=== PATIENT | male | born 1955 | race Caucasian/White ===

== ENCOUNTER → 2024-03-15 09:08 | Outpatient (REF) | payer MEDICARE, OTHER, SELFPAY ==
[2024-03-15 11:55] LABS: HDL Cholesterol 45 mg/dl; LDL Cholesterol, Calculated 118 mg/dl; Total Cholesterol 182 mg/dl (50-199); Triglyceride 99 mg/dl (10-149); Very Low Density Lipoprotein 19 mg/dl (0-30)
[2024-03-15 13:14] LABS: Glycohemoglobin (HgbA1c) 7.5 % (4.0-5.6)
== END ==
LOC: REG 09:08
PROVIDERS: ATTENDING PHYSICIAN Internal Medicine Cardiovascular Disease; FAMILY PHYSICIAN Internal Medicine
DX: I25.10 Atherosclerotic heart disease of native coronary artery without angina pectoris (principal); Z78.9 Other specified health status; R73.09 Other abnormal glucose
CPT/HCPCS: 36415; 80061; 83036

== ENCOUNTER → 2024-09-24 10:44 | Outpatient (REF) | payer MEDICARE, OTHER, SELFPAY ==
[2024-09-24 20:05] LABS: HDL Cholesterol 50 mg/dl; LDL Cholesterol, Calculated 105 mg/dl; Total Cholesterol 166 mg/dl (50-199); Triglyceride 58 mg/dl (10-149); Very Low Density Lipoprotein 11 mg/dl (0-30)
[2024-09-25 08:39] LABS: Glycohemoglobin (HgbA1c) 7.4 % (4.0-5.6)
== END ==
LOC: HWLAB 10:44
PROVIDERS: ATTENDING PHYSICIAN Internal Medicine Cardiovascular Disease; FAMILY PHYSICIAN Internal Medicine
DX: I25.10 Atherosclerotic heart disease of native coronary artery without angina pectoris (principal); R73.01 Impaired fasting glucose
CPT/HCPCS: 36415; 80061; 83036

== ENCOUNTER → 2025-01-25 08:26 | Outpatient (REF) | payer MEDICARE, OTHER, SELFPAY ==
[2025-01-25 10:33] LABS: Glycohemoglobin (HgbA1c) 7.2 % (4.0-5.6)
[2025-01-25 12:27] LABS: HDL Cholesterol 48 mg/dl; LDL Cholesterol, Calculated 105 mg/dl; Total Cholesterol 167 mg/dl (50-199); Triglyceride 70 mg/dl (10-149); Very Low Density Lipoprotein 14 mg/dl (0-30)
== END ==
LOC: HWLAB 08:26
PROVIDERS: ATTENDING PHYSICIAN Internal Medicine Cardiovascular Disease; FAMILY PHYSICIAN Internal Medicine
DX: R73.09 Other abnormal glucose (principal); Z79.899 Other long term (current) drug therapy; I25.10 Atherosclerotic heart disease of native coronary artery without angina pectoris
CPT/HCPCS: 36415; 80061; 83036

== ENCOUNTER → 2025-03-01 07:44 | Outpatient (REF) | payer MEDICARE, OTHER, SELFPAY ==
[2025-03-01 10:04] LABS: % Basophils 1.2 % (0-2); % Eosinophils 4.5 % (0-6); % Immature Granulocytes 0.5 % (0-0.5); % Lymphocytes 23.2 % (20.5-51.1); % Monocytes 9.5 % (1.7-9.3); % Neutrophils 61.1 % (42.2-75.2); Absolute Basophils 0.1 10^3/uL (0-0.2); Absolute Eosinophils 0.4 10^3/uL (0-0.7); Absolute Lymphocytes 1.9 10^3/uL (1.2-3.4); Absolute Monocytes 0.8 10^3/uL (0.1-0.6); Hematocrit 44.5 % (39.0-52.0); Hemoglobin 15.1 g/dL (13.0-18.0); Mean Corp Hgb Conc. 33.9 g/dL (33.0-37.0); Mean Corpuscular Hgb 30.8 pg (27.0-31.0); Mean Corpuscular Volume 90.6 fL (80.0-94.0); Mean Platelet Volume 9.5 fL (7.4-10.4); Nucleated Red Blood Cells % 0 % (-); Platelet Count 298 10^3/uL (130-400); Red Blood Cell Count 4.91 10^6/uL (4.70-6.10); Red Cell Dist. Width 12.5 % (11.5-14.5); White Blood Cell Count 8.2 10^3/uL (4.8-10.8)
[2025-03-01 10:21] LABS: ALT (SGPT) 33 U/L (0-50); AST (SGOT) 28 U/L (17-59); Albumin 4.2 g/dl (3.5-5.0); Alkaline Phosphatase 53 U/L (38-126); Blood Urea Nitrogen 14 mg/dl (9-20); Calcium 9.6 mg/dl (8.4-10.2); Carbon Dioxide 27 mmol/L (22-30); Chloride 108 mmol/L (98-107); Glucose 151 mg/dl (70-99); INR 0.91; Iron 67 ug/dl (49-181); Magnesium 2.1 mg/dl (1.6-2.3); PT 12.6 Sec (11.4-14.6); Phosphorus 3.8 mg/dl (2.5-4.5); Potassium 4.7 mmol/L (3.5-5.1); Sodium 141 mmol/L (135-145); Total Bilirubin 0.3 mg/dl (0.2-1.3); Total Protein 6.7 g/dl (6.3-8.2); Uric Acid 5.8 mg/dl (3.5-8.5); eGFR > 60.00
[2025-03-01 10:24] LABS: Urine Albumin Negative (Neg - Trace); Urine Bilirubin Negative (Negative); Urine Character Clear (Clear); Urine Color Yellow; Urine Glucose Negative (Negative); Urine Ketone Negative (Negative); Urine Leukocyte Negative (Negative); Urine Nitrite Negative (Negative); Urine Occult Blood Negative (Negative); Urine Urobilinogen Negative (Neg - 1+)
[2025-03-01 10:30] LABS: Percent Saturation 19 % (20-50); Total Iron Binding Capacity 339 ug/dl (261-462)
[2025-03-01 10:33] LABS: Prolactin 11.9 ng/ml (3.7-17.9); Vitamin D, 25-OH*** 38.7 ng/mL (30-80)
[2025-03-01 10:46] LABS: TSH 2.33 uIU/ml (0.47-4.68)
[2025-03-01 10:48] LABS: Cortisol, Random 9.9 ug/dl
[2025-03-01 10:52] LABS: Ferritin 87.6 ng/ml (17.9-464.0)
[2025-03-01 10:58] LABS: Monotest Negative (Negative)
[2025-03-01 11:09] LABS: Microalbumin, Random Urine 0.7 mg/dl (0.6-1.7)
[2025-03-03 00:33] LABS: Sex Hormone Binding Globulin 36 nmol/L (19-76)
[2025-03-03 22:46] LABS: Insulin, Random 14 uIU/mL
== END ==
LOC: HWLAB 07:44
PROVIDERS: ATTENDING PHYSICIAN Family Medicine; FAMILY PHYSICIAN Internal Medicine
DX: E11.9 Type 2 diabetes mellitus without complications (principal); R79.9 Abnormal finding of blood chemistry, unspecified; E61.2 Magnesium deficiency; E83.30 Disorder of phosphorus metabolism, unspecified; R73.01 Impaired fasting glucose; I10 Essential (primary) hypertension; E78.41 Elevated Lipoprotein(a); E03.9 Hypothyroidism, unspecified; E88.810 Metabolic syndrome; I70.91 Generalized atherosclerosis; K21.9 Gastro-esophageal reflux disease without esophagitis; R53.83 Other fatigue; E55.9 Vitamin D deficiency, unspecified; E29.1 Testicular hypofunction; R68.82 Decreased libido; R94.5 Abnormal results of liver function studies; R35.1 Nocturia; M25.50 Pain in unspecified joint; Z20.828 Contact with and (suspected) exposure to other viral communicable diseases
CPT/HCPCS: 36415; 80048; 80076; 81003; 82043; 82306; 82533; 82626; 82670; 82728; 83525; 83540; 83550; 83735; 84100; 84146; 84270; 84403; 84443; 84550; 85025; 85610; 86308; 86618

== ENCOUNTER → 2025-04-24 06:53 | Outpatient (REF) | payer MEDICARE, OTHER, SELFPAY | LOC: RAD 06:53 | PROVIDERS: ATTENDING PHYSICIAN Internal Medicine Cardiovascular Disease; FAMILY PHYSICIAN Internal Medicine | DX: M79.604 Pain in right leg (principal); M79.605 Pain in left leg; I25.10 Atherosclerotic heart disease of native coronary artery without angina pectoris; I70.90 Unspecified atherosclerosis | CPT/HCPCS: 93925 ==